=== PATIENT | female | born 1985 | race Caucasian/White ===

== ENCOUNTER 2017-10-03 11:29 | Emergency (ER) | payer OTHER ==
[~2017-10-03] VITALS: Ht 167.6 cm; Wt 59.0 kg
[~2017-10-03 11:29] MED LIST: ACET325 PO; AMOCLA500 PO; AZIT250 PO; AZIT500 PO; BIRTH CONTROL PATCH; CEPH500 PO; CRUTCH2 USE; CYAN500 PO; Cipro500 MG PO; Cyclobenzaprine5 MG PO; DEXA2 PO; ESTR.1TPBW TD; HYDACE10B PO; HYDACE5 PO; HYDGUAL120 PO; HYDMOR4 PO; IBUP800; IBUP800 PO; LEVSOD200; LEVSOD75 PO; LORA2 PO; META800 PO; MULVITMINE; NITR100CA PO; ONDA4 PO; ONDA8ODT MM; OXYACE5T PO; PENVK250 PO; PROACE100 PO; PROP40; PROP50; PROP60; Percocet 5-3251 EACH PO; ROFE25 PO; RXPENVK250 PO; RXPROACE PO; Robaxin500 MG PO
[2017-10-03] MEDS ORDERED: IBUP800 PO (13:40)
[2017-10-03] MEDS ORDERED: CRUTCH4 XX (13:40)
== END 2017-10-03 13:58 | disposition home or self-care (01) ==
LOC: ER 11:29
DX: M25.561 Pain in right knee (principal); V86.56XA Driver of dirt bike or motor/cross bike injured in nontraffic accident, initial encounter; Z88.2 Allergy status to sulfonamides; Z91.018 Allergy to other foods; Z79.899 Other long term (current) drug therapy; F17.200 Nicotine dependence, unspecified, uncomplicated
CPT/HCPCS: 73564; 99283

== ENCOUNTER → 2019-05-29 | Outpatient (CLI) | payer OTHER ==
[~2019-05-29] MED LIST changes: +CRUTCH4 XX
== END | disposition home or self-care (01) ==
LOC: LAB 17:31 → LAB SHORT 17:31
DX: J02.9 Acute pharyngitis, unspecified (principal)
CPT/HCPCS: 87081

== ENCOUNTER 2019-10-03 08:50 | Emergency (ER) | payer SELFPAY ==
[~2019-10-03] VITALS: Ht 170.2 cm; Wt 60.8 kg
== END 2019-10-03 09:46 | disposition home or self-care (01) ==
LOC: ER 08:50
DX: J02.0 Streptococcal pharyngitis (principal); Z88.8 Allergy status to other drugs, medicaments and biological substances; Z91.018 Allergy to other foods; F17.210 Nicotine dependence, cigarettes, uncomplicated
CPT/HCPCS: 87430; 96372; 99282-25; J0561; J1100